=== PATIENT | male | born 2005 | race Caucasian/White ===

== ENCOUNTER 2023-01-09 21:42 | Emergency (ER) | payer SELFPAY ==
[2023-01-09] MEDS ORDERED: Ondansetron 4 MG Tab.DIS PO ONE (22:19)
[2023-01-09] MEDS ORDERED: Acetaminophen/HYDROcodone 325-5 MG Tab PO ONE (22:19)
[2023-01-09] MEDS ORDERED: Lidocaine 4% 1 each Patch TOP SCH (22:30)
[2023-01-09] MEDS ORDERED: Ibuprofen 400 MG Tab PO ONE (22:30)
== END 2023-01-09 23:10 | disposition home or self-care (01) ==
LOC: MW.ED 21:42
DX: S93.401A Sprain of unspecified ligament of right ankle, initial encounter (principal); X50.1XXA Overexertion from prolonged static or awkward postures, initial encounter; Y93.39 Activity, other involving climbing, rappelling and jumping off
CPT/HCPCS: 73610; 73630; 99283; A9270

== ENCOUNTER 2025-02-05 20:38 | Emergency (ER) | payer BC | END 2025-02-05 21:36 | disposition home or self-care (01) | LOC: MW.ED 20:38 | DX: L03.211 Cellulitis of face (principal); Z75.3 Unavailability and inaccessibility of health-care facilities; Z79.899 Other long term (current) drug therapy | CPT/HCPCS: 99283; A9270; 99282 ==